=== PATIENT | female | born 1960 | race Caucasian/White ===

== ENCOUNTER 2017-03-23 07:07 | Day surgery (SDC) | payer BC ==
[2017-03-19 10:49] VITALS: BMI 28.8
[~2017-03-23 07:07] MED LIST: LACTATED RINGERS 1,000 ML IV SCH; LIDOCAINE 1% 20 ML VIAL (10MG/ML) FOR IV START INTRADERMA PRN
[2017-03-23 07:17] VITALS: TEMP 982
[2017-03-23] MEDS ORDERED: LACTATED RINGERS 1,000 ML IV ONE (07:26)
[2017-03-23] MEDS ORDERED: MIDAZOLAM 2 MG/2 ML VIAL ONE (07:52)
[2017-03-23] MEDS ORDERED: fentaNYL (PF) 50 MCG/ML 2 ML AMP ONE (07:52)
[2017-03-23] MEDS ORDERED: GLUCAGON 1 MG/ML VIAL ONE (07:52)
[2017-03-23] MEDS ORDERED: PROPOFOL 10 MG/ML 20 ML VIAL IV ONE (07:52)
--- NOTE | 2017-03-23 08:24 | P.OP ---
Date of Procedure: 03/23/17 Preoperative Diagnosis: Screening colonoscopy Postoperative Diagnosis: Tortuous sigmoid colon, internal hemorrhoids, beginning of some small sigmoid diverticuli Procedure(s) Performed: Colonoscopy Implants: Anesthesia: MAC Surgeon: Makeda Mittal Estimated Blood Loss (ml): 0 IV fluids (ml): 500 Pathology: none sent Condition: stable Disposition: PACU Indications for Procedure: Screening, patient has never had a colonoscopy performed Operative Findings: Tortuous sigmoid colon, beginning of diverticuli, internal hemorrhoids Description of Procedure: Patient was taken to the endoscopy suite and following sedation rectal exam was performed. Patient was noted to have good sphincter tone no masses. Colonoscope was passed through the anus into the rectum. The sigmoid colon was noted to be tortuous and spastic. Glucagon was given. Careful manipulation was used in the scope was advanced to the sigmoid colon up to splenic flexure. Was passed through the transverse colon hepatic flexure right colon down to the area of the cecum. Circumferential observation mucosa did not reveal any mucosal lesions of concern in the cecum or right colon. No lesions of concern were noted in the transverse colon. No lesions of concern were noted in the left colon or sigmoid colon although there was some small diverticular openings in the sigmoid colon. The scope was brought down to the rectum where it was retroflexed internal hemorrhoids identified. The cecum to the rectum. Impression/plan: 1. Tortuous sigmoid colon 2. Beginning of diverticuli 3. Internal hemorrhoids Plan: 1. Conservative management 2. Repeat scope 7-10 years
[2017-03-23 08:25] VITALS: RESP 16
--- NOTE | 2017-03-23 08:26 | P.DS ---
Providers Attending physician: Makeda Mittal Primary care physician: William Cantu Plan - Discharge Summary New Discharge Prescriptions: No Action L.acidoph,Paracasei, B.lactis [Probiotic] 1 cap PO DAILY Cholecalciferol [Vitamin D3] 2,000 unit PO DAILY Aspirin 325 mg PO Q4-6H PRN PRN Reason: Pain Discharge Medication List Cholecalciferol [Vitamin D3] 2,000 unit PO DAILY 06/29/16 [History] L.acidoph,Paracasei, B.lactis [Probiotic] 1 cap PO DAILY 06/29/16 [History] Aspirin 325 mg PO Q4-6H PRN 03/19/17 [History] Follow up Appointment(s)/Referral(s): Makeda Mittal MD [STAFF PHYSICIAN] - As Needed Discharge Disposition: HOME SELF-CARE
[2017-03-23 08:43] VITALS: BP 120/67; PULSE 61
== END 2017-03-23 09:06 | disposition home or self-care (01) ==
LOC: ORWHC2ENDO 07:07
PROVIDERS: ATTEND Surgery
DX: Z12.11 Encounter for screening for malignant neoplasm of colon (principal); K63.89 Other specified diseases of intestine; K57.30 Diverticulosis of large intestine without perforation or abscess without bleeding; K64.8 Other hemorrhoids; Z90.710 Acquired absence of both cervix and uterus; Z90.13 Acquired absence of bilateral breasts and nipples
CPT/HCPCS: G0121; J2250; J1610; J3010; J2704